=== PATIENT | female | born 1965 | race African-American/Black ===

== ENCOUNTER 2020-07-31 02:42 | Inpatient (IN) | payer OTHER ==
[~2020-07-31] VITALS: Ht 172.7 cm; Wt 68.0 kg
[2020-07-31 02:45] VITALS: BP 106/70
[2020-07-31 04:08] LABS: ABSOLUTE NEUTROPHILS 15.1 thou/uL (1.4-8.2); BASOPHILS 0.4 % (0.0-2.0); HEMATOCRIT 26.8 % (37.0-47.0); HEMOGLOBIN 8.4 gm/dL (12.0-15.0); LYMPHOCYTES 7.7 % (24.0-44.0); MCH 30.5 pg (26.0-34.0); MCHC 31.4 g/dL (28.0-37.0); PLATELET COUNT 580 thou/uL (150-400); POLYS 80.9 % (36.0-66.0); RBC 2.76 mil/uL (4.20-5.00); RDW 16.2 % (10.5-14.5); WBC 18.7 thou/uL (4.0-11.0)
[2020-07-31 04:10] LABS: URINE BILIRUBIN NEGATIVE (Negative); URINE BLOOD NEGATIVE (Negative); URINE CLARITY CLEAR; URINE COLOR YELLOW; URINE GLUCOSE-RANDOM* NEGATIVE (Negative); URINE KETONES NEGATIVE (Negative); URINE LEUKOCYTES-REFLEX NEGATIVE (Negative); URINE NITRITE-REFLEX NEGATIVE (Negative); URINE PROTEIN (DIPSTICK) NEGATIVE (Negative); URINE SPECIFIC GRAVITY >= 1.030 (1.005-1.035)
[2020-07-31 04:13] LABS: ANION GAP 6 mmol/L (7-16); BUN 36 mg/dL (7-18); CALCIUM 9.4 mg/dL (8.5-10.1); CHLORIDE 97 mmol/L (98-107); CO2 31 mmol/L (21-32); CREATININE 1.8 mg/dL (0.6-1.0); GLUCOSE 89 mg/dL (74-106); POTASSIUM 4.5 mmol/L (3.5-5.1); SODIUM 134 mmol/L (136-145)
[2020-07-31 04:19] LABS: ALBUMIN 1.2 g/dL (3.4-5.0); DIRECT BILIRUBIN < 0.1 mg/dL (<0.1-0.2); SGOT 35 U/L (15-37); SGPT 16 U/L (14-59); TOTAL BILIRUBIN 0.3 mg/dL (0.2-1.0); TOTAL PROTEIN 6.2 g/dL (6.4-8.2)
[2020-07-31] MEDS ORDERED: DIVALPROEX SOD250 M1 PO (04:53)
[2020-07-31] MEDS ORDERED: ATIVAN0.5 M1 PO (04:56)
[2020-07-31] MEDS ORDERED: BENADRYL25 MG PO (04:56)
[2020-07-31] MEDS ORDERED: BENZTROPINE MESY2 MG PO (04:57)
[2020-07-31] MEDS ORDERED: FENTANYL1 EAC3 TOP (04:57)
[2020-07-31] MEDS ORDERED: LEXAPRO5 MG PO (04:58)
[2020-07-31] MEDS ORDERED: LEVSIN0.125 MG PO (04:58)
[2020-07-31] MEDS ORDERED: MSL20MG/ML PO (04:59)
[2020-07-31 05:15] VITALS: BP 88/48
[2020-07-31] MEDS ORDERED: MULTI VITAMIN1 EACH PO (05:18)
[2020-07-31] MEDS ORDERED: ONDANSETRON ODT8 MG PO (05:19)
[2020-07-31] MEDS ORDERED: NEURONTIN100 MG PO (05:19)
[2020-07-31] MEDS ORDERED: ROXICODONE5 MG PO (05:20)
[2020-07-31] MEDS ORDERED: PEPCID20 MG PO (05:24)
[2020-07-31] MEDS ORDERED: SENNA LAXATIVE8.6 MG PO (05:24)
--- NOTE | 2020-07-31 06:33 | NUR ---
[facility]: Rosa Maria Mcnally: [phone]
--- NOTE | 2020-07-31 06:55 | NUR ---
hospice maisha Leyva updated on patient admission.
[2020-07-31 07:07] VITALS: BP 105/41
--- NOTE | 2020-07-31 07:10 | NUR ---
This RN spoke to patient's DPOA. DPOA/ sister reports that if patient would need vasopressors and a central line, she would want that. This RN explains that central line is an invasive procedure. Sister verbalizes understanding of instructions. Communicated this to archana Mohamud RN.
[2020-07-31 07:55] VITALS: BP 77/45
[2020-07-31 12:17] VITALS: BP 98/55
--- NOTE | 2020-07-31 15:25 | NUR ---
PT ADMITTED TO UNDER CARE OF DR RADFORD. SHE IS NOTED TO HAVE FOUL SMELLING WOUDN TO RIGH BREAST. AFTER CONSULTING WITH DR SADLER, OLD DRESSING TAKEN OUT, WOUND CLEANSED WITH NS AND PACKED WITH GAUZE SOAKED IN [place]. WOUND COVERED WITH ABD PAD AND TAPED. [facility] TOOK OFF DRESSING A FEW HOURS LATER, DRESSING PROCESS REPEATED. SHE WILL BE DISCHARGED TO [facility] PER DR RADFORD. PATIENT IS BACK TO [facility] ADMITTED FOR A FALL BUT SHE DOES NOT HAVE INJURY NOTED FROM SAID FALL. PRN PAIN MEDICATION ADMISTERED FOR RIGHT BREAST PAIN. REPORT CALLED TO MATTIE AT [facility] AND ALSO FAMILY NOTIFIED AT BEDSIDE.
--- NOTE | 2020-08-02 08:57 | HC ---
[facility] [place] [address] CONSULTATION Name: PIERRE OCHOA Room #: 204-P [facility] IN M.R.#: [id number] Admission: 07/31/20 Attend Phys: Kendrick Salazar Discharge: 07/31/20 Date of : 63 Report #: [id number] THIS REPORT FOR: cc: Shun Lopez MD, Shyam MD [place], Allen B. MD ~ DATE OF SERVICE: 07/31/2020 WOUND CARE CONSULTATION NOTE LOCATION: [facility]. REASON FOR CONSULTATION: Locally advanced breast cancer of right breast with wound necrosis. HISTORY OF PRESENT ILLNESS: The patient is a 55-year-old woman with advanced breast cancer, who has a do not resuscitate order and is being considered for hospice. The patient developed a locally advanced cancer of the right breast with locally aggressive disease and large ulcerated wound, currently necrotic and foul smelling. Wound is painful. Temperature is 36.5. White blood count is 18.7. Wound care is consulted for care of the malignant ulcer and necrotic wound of the right breast and chest wall. ALLERGIES: ASPIRIN. MEDICAL PROBLEMS: Locally advanced breast cancer, dehydration, severe protein-calorie malnutrition, albumin 1.2. MEDICATIONS: Include vancomycin and Zosyn. PHYSICAL EXAMINATION: GENERAL: Shows a chronically ill-appearing, middle-aged woman who is quite thin. She is alert and responsive. Wound of the right chest is painful. HEENT: Mucous membranes are moist. ABDOMEN: Soft. EXTREMITIES: Lower extremity wounds. CHEST: Examination of the right chest shows a large ulcerated raised wound of the right breast. There is a 6 x 7 cm area of ulceration with clinical invasive breast cancer with hard ulcerated tissue at the skin surface. Wound is very foul smelling with necrotic debris. There is a central ulceration measuring 2 x 1.5 x 3 cm deep, which appears to track to the fascia of the chest wall with necrotic debris. There is foul smelling purulence of the wound. IMPRESSION: Locally advanced breast cancer of the right breast with necrotic fungating tumor with ulceration and infection. [facility] [address] [place] [address] CONSULTATION Name: PIERRE OCHOA Room #: 204-P [facility] IN M.R.#: [id number] Admission: 07/31/20 Attend Phys: Kendrick Salazar Discharge: 07/31/20 Date of : 63 Report #: [id number] PLAN: IV antibiotics, local care with half strength Dakin's Kerlix packing of the wound. Change 3 times a day. Once wound is clean, can consider morphine, Silvadene cream. Family is discussing hospice. Wound care team will follow. I do not think surgical debridement would be appropriate, but local wound care can relieve the burden of infection on the necrotic tissue. <ELECTRONICALLY SIGNED> By: José Miguel Miranda MD 08/02/20 [id number] José Miguel Miranda MD /betsey
--- NOTE | 2020-08-02 09:20 | EKG ---
[address] [place] [address] ELECTROCARDIOGRAM REPORT Name: PIERRE OCHOA Room #: 204-[facility] IN M.R.#: [id number] Admission: 07/31/20 Attend Phys: Kendrick Salazar Discharge: 07/31/20 Date of : 63 Report #: [id number] [facility] ED Test Date: 2020-07-31 Test Time: 02:58:07 Pat Name: PIERRE OCHOA Department: Room: 204 Gender: F Radiographer Cardiac Catheterization: ellyn : 1965 Requested By: Kendrick Salazar Order Number: [id number] MD: David Paredes Measurements Intervals [place] Rate: 126 P: 55 OK: 122 QRS: -9 QRSD: 77 T: 122 QT: 274 QTc: 397 Interpretive Statements Sinus tachycardia Nonspecific ST segment abnormality No previous ECG available for comparison Electronically Signed On 08-02-2020 9:20:09 CDT by David Paredes [email or web address] <ELECTRONICALLY SIGNED> By: David Paredes MD, [facility] 08/02/20 0920 0258 [id number] David Paredes MD, FACC /EPI
== END 2020-07-31 15:29 | disposition hospice, home (50) | DRG 871 ==
LOC: ER 02:42 → EROBS 04:57 → 2N 07:33
PROVIDERS: Emergency Medicine; ADMIT Hospitalist; ATTEND Hospitalist
DX: A41.9 Sepsis, unspecified organism (principal); G93.41 Metabolic encephalopathy; E43 Unspecified severe protein-calorie malnutrition; N17.9 Acute kidney failure, unspecified; G93.40 Encephalopathy, unspecified; E87.1 Hypo-osmolality and hyponatremia; I96 Gangrene, not elsewhere classified; E78.5 Hyperlipidemia, unspecified; F32.9 Major depressive disorder, single episode, unspecified; Z51.5 Encounter for palliative care; Z66 Do not resuscitate; F41.9 Anxiety disorder, unspecified; F20.9 Schizophrenia, unspecified; K21.9 Gastro-esophageal reflux disease without esophagitis; G47.00 Insomnia, unspecified; E86.0 Dehydration; C50.911 Malignant neoplasm of unspecified site of right female breast; D64.9 Anemia, unspecified; E87.8 Other disorders of electrolyte and fluid balance, not elsewhere classified; Z68.22 Body mass index [BMI] 22.0-22.9, adult; Z88.8 Allergy status to other drugs, medicaments and biological substances; Z79.899 Other long term (current) drug therapy
CPT/HCPCS: 10194